=== PATIENT | male | born 1950 | race Caucasian/White ===

== ENCOUNTER 2017-10-07 23:56 | Emergency (ER) | payer MEDICARE, OTHER ==
[~2017-10-07] VITALS: Ht 175.3 cm; Wt 81.6 kg
--- NOTE | 2017-10-08 | NUR ---
BLACK TARRY STOOLS SINCE YESTERDAY/VOMITED BLOOD TODAY AND NOW I HAVE ABDOMINAL PAIN 09/18. PT IS TACHYCARDIC BUT OTHERWISE VSS NO ACUTE DISTRESS AT THIS TIME. PT IS ALERT AND ORIENTED X3 ABLE TO MAKE NNEEDS KNOWN. BREATHING RATE WNL WITH ADEQUATE CHEST RISE/FALL. PLACED ON DEVELOPMENT PLANNER. WILL CONTINUE TO MONITOR FOR ANY CHANGES DURING THE SHIFT.
--- NOTE | 2017-10-08 00:01 | NUR ---
ER MD LEE AT BEDSIDE FOR EVAL
[2017-10-08] MEDS ORDERED: PANTOPRAZOLE 80 MG in IV NS 0.9% 100 ML IV ONE (00:30)
[2017-10-08] MEDS ORDERED: ONDANSETRON HCL/PF 4 MG/2 ML VIAL IVP ONE (00:30)
[2017-10-08] MEDS ORDERED: IV NS 0.9% 1,000 ML BAG IV ONE (00:30)
[2017-10-08 00:38] LABS: BASOPHILS % (AUTO) 0.4 % (0.0-2.0); EOSINOPHILS % (AUTO) 0.3 % (0.0-6.0); HEMATOCRIT 35 % (39-51); LYMPHOCYTES # (AUTO) 1.2 /CMM (0.8-4.8); LYMPHOCYTES % (AUTO) 21.3 % (20.0-44.0); MEAN CORPUSCULAR HEMOGLOBIN 34 PG (26.0-33.0); MEAN CORPUSCULAR HGB CONC 34 g/dl (31.0-36.0); MEAN CORPUSCULAR VOLUME 99 fL (80-96); MONOCYTES # (AUTO) 0.6 /CMM (0.1-1.30); MONOCYTES % (AUTO) 10.2 % (2.0-12.0); NEUTROPHILS # (AUTO) 3.7 /CMM (1.8-8.9); NEUTROPHILS % (AUTO) 67.8 % (43.0-81.0); PLATELET COUNT (AUTO) 134 /CMM (150-450); RDW COEFFICIENT OF VARIATION 13.2 (11.5-15.0); RED BLOOD CELL COUNT(AUTO) 3.55 MIL/uL (4.5-6.0); WHITE BLOOD COUNT (AUTO) 5.4 K/uL (4.3-11.0)
[2017-10-08] MEDS ORDERED: PANTOPRAZOLE 40 MG VIAL ONE (00:39)
[2017-10-08] MEDS ORDERED: ONDANSETRON HCL/PF 4 MG/2 ML VIAL ONE (00:39)
[2017-10-08 00:50] LABS: CALCIUM, SERUM 8.5 mg/dL (8.5-10.1); CREATININE 1.2 mg/dL (0.6-1.3); INR 1.02 (0.87-1.13); POTASSIUM 4.1 mmol/L (3.5-5.1)
[2017-10-08 00:53] LABS: TROPONIN I 0.024 ng/mL (0.00-0.056)
[2017-10-08 00:54] LABS: ALBUMIN 3.3 g/dL (3.4-5.0); BILIRUBIN,DIRECT 0.1 mg/dL (0.0-0.2); BILIRUBIN,TOTAL 0.7 mg/dL (0.2-1.0); TOTAL PROTEIN, SERUM 6.2 g/dL (6.4-8.2)
[2017-10-08 02:12] LABS: OCCULT BLOOD STOOL POSITIVE (NEGATIVE)
--- NOTE | 2017-10-08 02:59 | NUR ---
LINDSEY RODRIGUEZ PICKUP [id number] MD JONY ROBLES JENNIFER Addendum: 10/08/17 at 0300 by DIOGO LINDSEY AYERS FOR REPORT IS [phone]
--- NOTE | 2017-10-08 03:03 | NUR ---
GAVE REPROT TO CHUCHO LINDSEY RN AT [facility]
[2017-10-08 04:10] VITALS: BP 134/65
--- NOTE | 2017-10-08 04:11 | NUR ---
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 PATIENT HAS LEFT IN STABLE CONDITION
== END 2017-10-08 04:12 | disposition short-term general hospital (02) ==
LOC: ER 23:59
DX: K92.2 Gastrointestinal hemorrhage, unspecified (principal); R11.10 Vomiting, unspecified; K92.1 Melena; I11.0 Hypertensive heart disease with heart failure; I50.9 Heart failure, unspecified; Z90.89 Acquired absence of other organs; J44.9 Chronic obstructive pulmonary disease, unspecified
CPT/HCPCS: 36415; 71045; 80048; 80076; 82272; 83690; 84484; 85025; 85730; 86850; 93005; 96365; 96375; 99285; A4606; C9113 ×2; G0480; J2405; J7030 ×3; Z7610